=== PATIENT | male | born 1995 | race Caucasian/White ===

== ENCOUNTER 2022-05-10 12:36 | Emergency (ER) | payer SELFPAY ==
[2022-05-10 12:55] VITALS: BP 148/82; PULSE 73; RESP 20; TEMP 36.8; O2SAT 98; BMI 29.1
--- NOTE | 2022-05-10 13:22 | EXP.UTC ---
Discharge Plan Disposition Patient Disposition: Home, Self-Care Condition: Good Prescriptions Prescriptions: New amoxicillin-pot clavulanate 875-125 mg Tablet 1 tab PO Q12H 10 Days Qty: 20 0RF Referrals Follow up/Referrals: Becky Rodas MD [Primary Care Provider] - See instructions Genaro Pérez MD [Physician] - See instructions Cole Cohen MD [Physician] - See instructions Houston Leal III, MD [Staff Physician] - See instructions Activity Restrictions/Add. Instructions Additional Instructions/Restrictions: Warm compress on right eye may help with stye if no improvement or any worsening of symptoms follow up with your Eye Doctor over the counter stye medication may help with discomfort Take medication as prescribed Follow up with ENT call today and make appointment for further evaluation of knot on your jaw area Return if needed Follow up with your Family Doctor if needed Straight to ER if any life threatening symptoms Clinical Impressions Clinical Impression: Parotitis Stand Alone Forms Stand Alone Forms: Work/School Release Instructions Patient Instructions: Parotitis, DI for [facility]de[facility] Discharge ED Provider: Billie Subramanian [facility] [place] General Stated complaint: knots on Rt side of jaw, Rt eye irritation Mode of Arrival: Ambulatory Source of Information: Patient Limitations: No Limitations Time Seen by Provider: 05/10/22 13:22 Description of Symptoms (Recalled from Triage Doc. by RN): PATIENT C/O STY TO RIGHT EYELID AND TENDER KNOT BY RIGHT EAR HEENT Symptoms (Recalled from RN notes): Yes Resp Symptoms (Recalled from RN notes): No Skin Symptoms (Recalled from RN notes): No MS Symptoms (Recalled from RN notes): No Functional Status (Recalled from RN notes): WNL History of Present Illness Provider Complaint: Patient states that he has a sore area on the inside of his right eyelid that father states told him thought it was a stye, States that he has also noticed a couple days ago he had a knot like area on the side of his jaw by his ear that is hard and tender to the touch States that he was worried about so he came in to get it checked Related Data Previous Rx's Medication Instructions Recorded amoxicillin 875 mg-potassium 1 tab PO Q12H 10 days #20 tabs 05/10/22 clavulanate 125 mg tablet Allergies Allergy/AdvReac Type Severity Reaction Status Date / Time No Known Allergies Allergy Verified 01/14/20 11:55 Worker's Comp Is this a Worker's Comp case?: No [facility] Disclaimer: The information contained in this section may have been updated after the patient was seen, as this information can be updated by other users. Medical History (Updated 05/10/22 @ 13:31 by Billie Subramanian APRN) Hypertension Social History (Updated 05/10/22 @ 13:09 by Pamela Ruff RN) Smoking Status: Never smoker alcohol intake: never substance use type: denies use current occupational status: employed Travel in the last 8 weeks: None household members: family housing: house ROS Obtained: Yes All systems reviewed & no additional complaints except as documented and Yes Systems reviewed as appropriate & no additional complaints except as documented Constitutional Constitutional: Reports system reviewed and no additional complaints, except as documented and Reports as per HPI Eyes Eyes: Reports system reviewed and no additional complaints, except as documented, Reports as per HPI and Reports other (swollen bump on inside of right eyelid) ENT Ears, Nose, Mouth, and Throat: Reports system reviewed and no additional complaints, except as documented and Reports as per HPI Comments: knot on rihgt side of jaw by ear Respiratory Respiratory: Reports system reviewed and no additional complaints, except as documented and Reports as per HPI Gastrointestinal Gastrointestingal: Reports system reviewed and no additional complaints, except as documented and as per HPI Musculoskeletal Muscu
[2022-05-10 13:37] VITALS: BP 148/82; PULSE 73; RESP 20; TEMP 36.8; O2SAT 98
== END 2022-05-10 13:43 | disposition home or self-care (01) ==
PROVIDERS: Emergency Provider Nurse Practitioner; PCP Family Medicine
DX: K11.20 Sialoadenitis, unspecified (principal)
CPT/HCPCS: 99212; 99213; G0463